=== PATIENT | male | born 1960 | race Caucasian/White ===

== ENCOUNTER 2020-11-25 09:17 | Inpatient (IN) | payer OTHER ==
[2020-11-25 10:43] VITALS: BMI 29.1
[2020-11-25] MEDS ORDERED: chlordiazePOXIDE HCL 25 MG CAPSULE PO SCH (11:00)
[2020-11-25] MEDS ORDERED: chlordiazePOXIDE HCL 25 MG CAPSULE PO PRN (11:19)
[2020-11-25] MEDS ORDERED: MAGNESIUM HYDROX 2400MG/30ML ORAL SUSPENSION 30 ML CUP PO PRN (11:19)
[2020-11-25] MEDS ORDERED: MENTHOL/PHENOL 1 EACH UD MM PRN (11:19)
[2020-11-25] MEDS ORDERED: MAG HYDROX/AL HYDROX/SIMETH 30 ML UNIT-DOSE CUP PO PRN (11:19)
[2020-11-25] MEDS ORDERED: BISMUTH SUBSALICYLATE 262 MG/15 ML BTL PO PRN (11:19)
[2020-11-25] MEDS ORDERED: IBUPROFEN 400 MG TABLET (FP) PO PRN (11:19)
[2020-11-25] MEDS ORDERED: ONDANSETRON *ODT* 4 MG TABLET SL PRN (11:19)
[2020-11-25] MEDS ORDERED: METHOCARBAMOL 500 MG TABLET PO PRN (11:19)
[2020-11-25] MEDS ORDERED: MAGNESIUM CITRATE 300 ML BOTTLE PO PRN (11:19)
[2020-11-25] MEDS ORDERED: ACETAMINOPHEN 325 MG TABLET (FP) PO PRN ×2 (11:19)
[2020-11-25] MEDS ORDERED: LORazepam 1 MG TABLET PO PRN (11:30)
[2020-11-25] MEDS: LORazepam 2 MG TABLET PO SCH ×3 (12:58→22:09)
[2020-11-25] MEDS: PRENATAL VITAMINS W/ FOLIC ACID TABLET (FP) PO SCH (12:58)
[2020-11-25 14:49] LABS: HEMATOCRIT 47.3 % (35.4-49); HEMOGLOBIN 16.2 GM/dL (11.7-16.9); MCH 32.8 pg (25.7-33.7); MCHC 34.3 g/dl (32.0-35.9); MEAN CELL VOLUME 95.8 fl (80-96); MEAN PLT VOLUME 8.8 fl (7.5-11.1); PLATELET COUNT 262 K/MM3 (134-434); RBC 4.94 M/mm3 (4.00-5.60); RDW 13.4 % (11.9-15.9)
[2020-11-25 14:57] LABS: CALCIUM 9.5 mg/dL (8.5-10.1)
[2020-11-25 14:58] LABS: ALBUMIN 4.4 g/dl (3.4-5.0); BLOOD UREA NITROGEN 13.8 mg/dL (7-18)
[2020-11-25 15:01] LABS: CREATININE 1.2 mg/dL (0.55-1.3)
[2020-11-25 15:03] LABS: BILIRUBIN,TOTAL 0.9 mg/dL (0.2-1); TOT PROT 7.7 g/dl (6.4-8.2)
[2020-11-25] MEDS: hydrOXYzine PAMOATE 25 MG CAPSULE (FP) PO SCH ×3 (15:11→22:08)
[2020-11-25] MEDS: MELATONIN 5 MG TABLETS PO SCH (22:09)
[2020-11-25] MEDS: THIAMINE HCL 100 MG TABLET (FP) PO SCH (22:09)
[2020-11-26] MEDS: LORazepam 2 MG TABLET PO SCH ×4 (05:44→22:02)
[2020-11-26] MEDS: hydrOXYzine PAMOATE 25 MG CAPSULE (FP) PO SCH ×5 (05:44→22:02)
[2020-11-26] MEDS: PRENATAL VITAMINS W/ FOLIC ACID TABLET (FP) PO SCH (10:11)
[2020-11-26] MEDS: FLUTICASONE PROP 0.05% 16 GM NASAL SPRAY NS SCH (10:12)
[2020-11-26] MEDS: ASPIRIN COATED 81 MG TABLET.EC PO SCH (10:12)
[2020-11-26] MEDS: LISINOPRIL 20 MG TABLET PO SCH (10:12)
[2020-11-26] MEDS: FENOFIBRIC ACID 135 MG CAP PO SCH (10:13)
[2020-11-26 11:43] LABS: HIV INTERPRETATION NEGATIVE (NEGATIVE)
[2020-11-26] MEDS: MELATONIN 5 MG TABLETS PO SCH (22:02)
[2020-11-26] MEDS: THIAMINE HCL 100 MG TABLET (FP) PO SCH (22:02)
[2020-11-27] MEDS ORDERED: chlordiazePOXIDE HCL 25 MG CAPSULE PO SCH (05:00)
[2020-11-27] MEDS: hydrOXYzine PAMOATE 25 MG CAPSULE (FP) PO SCH ×5 (05:44→22:15)
[2020-11-27] MEDS: LORazepam 1 MG TABLET PO SCH ×4 (05:44→22:15)
[2020-11-27] MEDS: ASPIRIN COATED 81 MG TABLET.EC PO SCH (10:08)
[2020-11-27] MEDS: FLUTICASONE PROP 0.05% 16 GM NASAL SPRAY NS SCH (10:08)
[2020-11-27] MEDS: PRENATAL VITAMINS W/ FOLIC ACID TABLET (FP) PO SCH (10:08)
[2020-11-27] MEDS: FENOFIBRIC ACID 135 MG CAP PO SCH (10:10)
[2020-11-27] MEDS: LISINOPRIL 20 MG TABLET PO SCH (10:11)
[2020-11-27] MEDS: THIAMINE HCL 100 MG TABLET (FP) PO SCH (22:15)
[2020-11-27] MEDS: MELATONIN 5 MG TABLETS PO SCH (22:16)
[2020-11-28] MEDS ORDERED: LORazepam 0.5 MG TABLET PO PRN
[2020-11-28] MEDS ORDERED: chlordiazePOXIDE HCL 10 MG CAPSULE PO PRN
[2020-11-28] MEDS ORDERED: chlordiazePOXIDE HCL 10 MG CAPSULE PO SCH (05:00)
[2020-11-28] MEDS: hydrOXYzine PAMOATE 25 MG CAPSULE (FP) PO SCH ×5 (05:23→22:11)
[2020-11-28] MEDS: LORazepam 0.5 MG TABLET PO SCH ×4 (05:23→22:12)
[2020-11-28] MEDS: ASPIRIN COATED 81 MG TABLET.EC PO SCH (11:01)
[2020-11-28] MEDS: PRENATAL VITAMINS W/ FOLIC ACID TABLET (FP) PO SCH (11:01)
[2020-11-28] MEDS: FENOFIBRIC ACID 135 MG CAP PO SCH (11:01)
[2020-11-28] MEDS: LISINOPRIL 20 MG TABLET PO SCH (11:01)
[2020-11-28] MEDS: FLUTICASONE PROP 0.05% 16 GM NASAL SPRAY NS SCH (11:04)
[2020-11-28] MEDS: THIAMINE HCL 100 MG TABLET (FP) PO SCH (22:11)
[2020-11-28] MEDS: MELATONIN 5 MG TABLETS PO SCH (22:11)
[2020-11-29] MEDS ORDERED: LORazepam 0.5 MG TABLET PO ONE (05:00)
[2020-11-29] MEDS ORDERED: chlordiazePOXIDE HCL 10 MG CAPSULE PO SCH (05:00)
[2020-11-29] MEDS: hydrOXYzine PAMOATE 25 MG CAPSULE (FP) PO SCH (05:13)
[2020-11-29 07:39] VITALS: TEMP 97.1
[2020-11-29 09:09] VITALS: BP 117/73; PULSE 92
[2020-11-30] MEDS ORDERED: chlordiazePOXIDE HCL 10 MG CAPSULE PO ONE (05:00)
== END 2020-11-29 09:33 | disposition home or self-care (01) | DRG 773 ==
LOC: YASAS 09:17 → Y3N 10:39
PROVIDERS: ADMIT Allergy & Immunology; ATTEND Allergy & Immunology
PROC: HZ2ZZZZ Detoxification Services for Substance Abuse Treatment (ICD-10-PCS; principal; 2020-11-25)
DX: F10.230 Alcohol dependence with withdrawal, uncomplicated (principal); F11.20 Opioid dependence, uncomplicated; F14.20 Cocaine dependence, uncomplicated; F19.24 Other psychoactive substance dependence with psychoactive substance-induced mood disorder; F32.9 Major depressive disorder, single episode, unspecified; E78.5 Hyperlipidemia, unspecified; I25.10 Atherosclerotic heart disease of native coronary artery without angina pectoris; I10 Essential (primary) hypertension
CPT/HCPCS: 36415; 80053; 85027; 86780; 87389; 93005; 93010; C9803; U0003

== ENCOUNTER 2020-12-19 08:51 | Inpatient (IN) | payer OTHER ==
[2020-12-19 09:32] VITALS: BMI 31.1
[2020-12-19] MEDS ORDERED: IBUPROFEN 400 MG TABLET (FP) PO PRN (09:52)
[2020-12-19] MEDS ORDERED: METHOCARBAMOL 500 MG TABLET PO PRN (09:52)
[2020-12-19] MEDS ORDERED: ACETAMINOPHEN 325 MG TABLET (FP) PO PRN ×2 (09:52)
[2020-12-19] MEDS ORDERED: MAGNESIUM CITRATE 300 ML BOTTLE PO PRN (09:52)
[2020-12-19] MEDS ORDERED: MENTHOL/PHENOL 1 EACH UD MM PRN (09:52)
[2020-12-19] MEDS ORDERED: NICOTINE POLACRILEX 2 MG GUM BUC PRN (09:52)
[2020-12-19] MEDS ORDERED: chlordiazePOXIDE HCL 25 MG CAPSULE PO PRN (09:52)
[2020-12-19] MEDS ORDERED: BISMUTH SUBSALICYLATE 524 MG/30 ML UD PO PRN (09:52)
[2020-12-19] MEDS ORDERED: MAGNESIUM HYDROX 2400MG/30ML ORAL SUSPENSION 30 ML CUP PO PRN (09:52)
[2020-12-19] MEDS ORDERED: ONDANSETRON *ODT* 4 MG TABLET SL PRN (09:52)
[2020-12-19] MEDS: LISINOPRIL 20 MG TABLET PO SCH (11:37)
[2020-12-19] MEDS: hydrOXYzine PAMOATE 25 MG CAPSULE (FP) PO SCH ×4 (11:37→22:19)
[2020-12-19] MEDS: ASPIRIN COATED 81 MG TABLET.EC PO SCH (11:38)
[2020-12-19] MEDS: PRENATAL VITAMINS W/ FOLIC ACID TABLET (FP) PO SCH (11:40)
[2020-12-19 14:34] LABS: POTASSIUM 4.4 mmol/L (3.5-5.1)
[2020-12-19 14:35] LABS: HEMATOCRIT 47.8 % (35.4-49); HEMOGLOBIN 16.3 GM/dL (11.7-16.9); MCH 32.8 pg (25.7-33.7); MCHC 34.2 g/dl (32.0-35.9); MEAN CELL VOLUME 96.1 fl (80-96); MEAN PLT VOLUME 8.4 fl (7.5-11.1); PLATELET COUNT 262 K/MM3 (134-434); RBC 4.97 M/mm3 (4.00-5.60); RDW 13.6 % (11.9-15.9); WHITE BLOOD COUNT 6.8 K/mm3 (4.0-10.0)
[2020-12-19 14:37] LABS: CALCIUM 9.9 mg/dL (8.5-10.1)
[2020-12-19 14:38] LABS: ALBUMIN 4.4 g/dl (3.4-5.0)
[2020-12-19 14:41] LABS: CREATININE 1.3 mg/dL (0.55-1.3)
[2020-12-19 14:42] LABS: BILIRUBIN,TOTAL 0.6 mg/dL (0.2-1); TOT PROT 7.6 g/dl (6.4-8.2)
[2020-12-19 15:33] LABS: HIV INTERPRETATION NEGATIVE (NEGATIVE)
[2020-12-19] MEDS: chlordiazePOXIDE HCL 25 MG CAPSULE PO SCH ×2 (17:47→22:19)
[2020-12-19] MEDS: THIAMINE HCL 100 MG TABLET (FP) PO SCH (22:19)
[2020-12-19] MEDS: MELATONIN 5 MG TABLETS PO SCH (22:20)
[2020-12-20] MEDS: chlordiazePOXIDE HCL 25 MG CAPSULE PO SCH ×4 (06:10→22:38)
[2020-12-20] MEDS: hydrOXYzine PAMOATE 25 MG CAPSULE (FP) PO SCH ×5 (06:11→22:38)
[2020-12-20] MEDS: FENOFIBRIC ACID 135 MG CAP PO SCH (10:07)
[2020-12-20] MEDS: PRENATAL VITAMINS W/ FOLIC ACID TABLET (FP) PO SCH (10:07)
[2020-12-20] MEDS: ASPIRIN COATED 81 MG TABLET.EC PO SCH (10:07)
[2020-12-20] MEDS: LISINOPRIL 20 MG TABLET PO SCH (10:07)
[2020-12-20] MEDS: FLUTICASONE PROP 0.05% 16 GM NASAL SPRAY NS SCH ×2 (10:57→22:37)
[2020-12-20] MEDS: MAG HYDROX/AL HYDROX/SIMETH 30 ML UNIT-DOSE CUP PO PRN (15:25)
[2020-12-20] MEDS: THIAMINE HCL 100 MG TABLET (FP) PO SCH (22:38)
[2020-12-20] MEDS: MELATONIN 5 MG TABLETS PO SCH (22:38)
[2020-12-21] MEDS: hydrOXYzine PAMOATE 25 MG CAPSULE (FP) PO SCH ×5 (05:57→22:17)
[2020-12-21] MEDS: chlordiazePOXIDE HCL 25 MG CAPSULE PO SCH ×4 (05:58→22:17)
[2020-12-21] MEDS: LISINOPRIL 20 MG TABLET PO SCH (10:43)
[2020-12-21] MEDS: ASPIRIN COATED 81 MG TABLET.EC PO SCH (10:43)
[2020-12-21] MEDS: PRENATAL VITAMINS W/ FOLIC ACID TABLET (FP) PO SCH (10:43)
[2020-12-21] MEDS: FLUTICASONE PROP 0.05% 16 GM NASAL SPRAY NS SCH ×2 (10:43→22:17)
[2020-12-21] MEDS: FENOFIBRIC ACID 135 MG CAP PO SCH (13:16)
[2020-12-21] MEDS: MAG HYDROX/AL HYDROX/SIMETH 30 ML UNIT-DOSE CUP PO PRN (18:05)
[2020-12-21] MEDS: THIAMINE HCL 100 MG TABLET (FP) PO SCH (22:18)
[2020-12-21] MEDS: MELATONIN 5 MG TABLETS PO SCH (22:18)
[2020-12-22] MEDS ORDERED: chlordiazePOXIDE HCL 10 MG CAPSULE PO PRN
[2020-12-22] MEDS: chlordiazePOXIDE HCL 10 MG CAPSULE PO SCH ×4 (06:05→22:27)
[2020-12-22] MEDS: hydrOXYzine PAMOATE 25 MG CAPSULE (FP) PO SCH ×5 (06:06→22:27)
[2020-12-22] MEDS: PRENATAL VITAMINS W/ FOLIC ACID TABLET (FP) PO SCH (10:07)
[2020-12-22] MEDS: LISINOPRIL 20 MG TABLET PO SCH (10:07)
[2020-12-22] MEDS: ASPIRIN COATED 81 MG TABLET.EC PO SCH (10:07)
[2020-12-22] MEDS: FLUTICASONE PROP 0.05% 16 GM NASAL SPRAY NS SCH ×2 (10:07→22:26)
[2020-12-22] MEDS: FENOFIBRIC ACID 135 MG CAP PO SCH (10:07)
[2020-12-22] MEDS: THIAMINE HCL 100 MG TABLET (FP) PO SCH (22:27)
[2020-12-22] MEDS: MELATONIN 5 MG TABLETS PO SCH (22:28)
[2020-12-23] MEDS: MAG HYDROX/AL HYDROX/SIMETH 30 ML UNIT-DOSE CUP PO PRN (00:55)
[2020-12-23] MEDS ORDERED: chlordiazePOXIDE HCL 10 MG CAPSULE PO SCH (05:00)
[2020-12-23] MEDS: hydrOXYzine PAMOATE 25 MG CAPSULE (FP) PO SCH (05:49)
[2020-12-23 08:23] VITALS: TEMP 97.1
[2020-12-23 09:06] VITALS: BP 125/77; PULSE 85
[2020-12-24] MEDS ORDERED: chlordiazePOXIDE HCL 10 MG CAPSULE PO ONE (05:00)
== END 2020-12-23 09:49 | disposition home or self-care (01) | DRG 773 ==
LOC: YASAS 08:51 → Y6N 10:40
PROVIDERS: ADMIT Allergy & Immunology; ATTEND Allergy & Immunology
PROC: HZ2ZZZZ Detoxification Services for Substance Abuse Treatment (ICD-10-PCS; principal; 2020-12-19)
DX: F10.230 Alcohol dependence with withdrawal, uncomplicated (principal); F11.20 Opioid dependence, uncomplicated; F14.20 Cocaine dependence, uncomplicated; F17.210 Nicotine dependence, cigarettes, uncomplicated; F32.9 Major depressive disorder, single episode, unspecified; I25.10 Atherosclerotic heart disease of native coronary artery without angina pectoris; I10 Essential (primary) hypertension; E78.5 Hyperlipidemia, unspecified; M54.89 Other dorsalgia; G89.29 Other chronic pain; R79.89 Other specified abnormal findings of blood chemistry; Z98.49 Cataract extraction status, unspecified eye
CPT/HCPCS: 36415; 80053; 84520; 85027; 86780; 87389; C9803; U0003; U0005